=== PATIENT | male | born 1995 | race Asian ===

== ENCOUNTER 2017-09-17 17:30 | Emergency (ER) | payer OTHER ==
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
[2017-09-17 20:02] VITALS: BP 130/84
== END 2017-09-17 20:01 | disposition home or self-care (01) ==
DX: S20.20XA Contusion of thorax, unspecified, initial encounter (principal); S16.1XXA Strain of muscle, fascia and tendon at neck level, initial encounter; V59.59XA Passenger in pick-up truck or van injured in collision with other motor vehicles in traffic accident, initial encounter; Y92.410 Unspecified street and highway as the place of occurrence of the external cause

== ENCOUNTER 2018-09-03 14:10 | Emergency (ER) | payer OTHER ==
--- NOTE | 2018-09-03 14:12 | EDPHY ---
H & P Source: Patient Exam Limitations: No limitations - Medical/Surgical History Hx Asthma: No Hx Chronic Respiratory Disease: No Hx Diabetes: No Hx Cardiac Disease: No Hx Renal Disease: No Hx Cirrhosis: No Hx Alcoholism: No Hx HIV/AIDS: No Hx Splenectomy or Spleen Trauma: No Other PMH: DENIES - Social History Smoking Status: Never smoked Time Seen by Provider: 09/03/18 14:12 HPI/ROS: HPI: This is a 23-year-old male who presents with Chief Complaint: Difficulty hearing, ear clogged up Location: Right greater than left Quality: Feeling clogged Duration: Several days Signs and Symptoms: no fever, no nausea, no vomiting, no diarrhea, no urinary symptoms, no chest pain, no shortness of breath, no wheezing, no cough, no sore throat, no neck stiffness, no joint pain, no swollen glands, no ear pain, no rash Timing: Gradual onset Severity: Mild Context: 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 No fevers, ear pain, ear discharge, recent swimming, jaw pain. No recent upper respiratory symptoms. No recent changes and elevation. Modifying Factors: Has tried nothing for the symptoms Comment: ROS: A comprehensive 10 system review of systems is otherwise negative aside from elements mentioned in the history of present illness. MEDICAL/SURGICAL/SOCIAL HISTORY: Medical history: Generally healthy. Does not take any regular medications. Surgical history: Denies Social history: Never smoked. Student at [employer]. Family history noncontributory. CONSTITUTIONAL: Well-developed, well-nourished young adult male, awake and alert, no obvious distress HEENT: Atraumatic and normocephalic, PERRL, EOMI. Nares patent; no rhinorrhea; no nasal mucosal edema. External auditory canals are occluded with soft brownish wax; unable to visualize tympanic membrane. Oropharynx clear, no exudate and moist pink mucosa. Airway patent. No lymphadenopathy. No meningismus. Cardiovascular: Normal S1/S2, regular rate, regular rhythm, without murmur rub or gallop. PULMONARY/CHEST: Symmetrical and nontender. Clear to auscultation bilaterally. Good air movement. No accessory muscle usage. ABDOMEN: Soft, nondistended, nontender, no rebound, no guarding, no peritoneal signs, no masses or organomegaly. No CVAT. EXTREMITIES: 2/2 pulses, strength 5/5, no deformities, no clubbing, no cyanosis or edema. NEUROLOGICAL: no focal neuro deficits. GCS 15. SKIN: Warm and dry, no erythema. no rash. Good capillary refill. (Sherin Thibodeaux) Constitutional: Initial Vital Signs Temperature (C) 36.6 C 09/03/18 14:11 Heart Rate 88 09/03/18 14:11 Respiratory Rate 16 09/03/18 14:11 Blood Pressure 131/71 H 09/03/18 14:11 O2 Sat (%) 98 09/03/18 14:11 O2 Delivery Mode Room Air Allergies/Adverse Reactions: No Known Allergies Allergy (Unverified 09/17/17 17:37) Home Medications: Medication Instructions Recorded NK [No Known Home Meds] 09/17/17 Medical Decision Making ED Course/Re-evaluation: Vital signs reviewed and stable upon arrival. Ear wax irrigated by tech with large amounts of cerumen removal and no signs of otitis externa/otitis media/TM perforation Patient does not have mastoiditis or sepsis Given a prescription for Debrox [id number] This patient was seen under the supervision of my secondary supervising physician. I evaluated and cared for this patient independently. (Sherin Thibodeaux) Differential Diagnosis: Differential diagnosis includes but is not limited to cerumen impaction, otitis externa, otitis media, tympanic membrane perforation (Sherin Thibodeaux) Other Provider: The patient was evaluated and managed by the Physician Corporate Trainer. My co- signature indicates that I have reviewed this chart and I agree with the findings and plan of care as documented. I am the secondary supervising physician. (Shelley Johnson) Departure - Departure Disposition: Home, Routine, Self-Care Clinical Impression: Impacted cerumen, bilateral Condition: Good Instructions: Carbamide Peroxide (Into the ear), Cerumen Impaction (ED) Additional Instructions: Use [id number] Debrox/Carbamide Peroxide as needed for excessive ear wax. Avoid sticking your fingers into your ears or using cotton applicators to clean your ears. Referrals: [facility],. [Clinic] - Follow Up Only If Needed
[2018-09-03 14:14] VITALS: BP 131/71
== END 2018-09-03 15:10 | disposition home or self-care (01) ==
PROC: 3E1B78Z Irrigation of Ear using Irrigating Substance, Via Natural or Artificial Opening (ICD-10-PCS; principal; 2018-09-03)
DX: H61.23 Impacted cerumen, bilateral (principal)